=== PATIENT | male | born 1980 | race Two or more races ===

== ENCOUNTER 2022-05-24 14:36 | Emergency (ER) | payer SELFPAY ==
[2022-05-24] MEDS ORDERED: Proparacaine 0.5% Ophth Soln 15 ML Bottle EYERT ONE (17:00)
[2022-05-24] MEDS ORDERED: Fluorescein 1 MG Ophth Strip EYERT ONE (17:01)
[2022-05-24] MEDS ORDERED: Tetracaine HCl/PF 0.5% 4 ML Bottle EYEBOTH ONE (17:05)
== END 2022-05-24 17:53 | disposition home or self-care (01) ==
LOC: MW.ED 14:36
DX: S05.01XA Injury of conjunctiva and corneal abrasion without foreign body, right eye, initial encounter (principal); Y04.0XXA Assault by unarmed brawl or fight, initial encounter
CPT/HCPCS: 99283; J3490